=== PATIENT | male | born 1960 | race Caucasian/White ===

== ENCOUNTER 2019-08-10 13:42 | Outpatient (CLI) | payer BC, SELFPAY ==
--- NOTE | 2019-08-10 13:57 | CT_ITS ---
WS: [id number] CT CHEST TECHNIQUE: Contrast enhanced CT of the chest with coronal and sagittal reformatted images. CLINICAL INFORMATION: LEFT PULMONARY NODULE COMPARISON: None. DLP: 980.[address] scans at [facility] use at least one of these dose optimization techniques: automat ed exposure control; mA and/or kV adjustment per patient size (includes targeted exams where dose is matched to clinical indication); or iterative reconstruction. FINDINGS: Noncalcified pulmonary nodule left lower lobe measuring 6 mm. Chronic calcified granulomatous disease . Slight bibasilar atelectasis. No acute pulmonary infiltrates. No consolidation or pleural fluid. Vascular calcification including coronary. No mediastinal or hilar lymphadenopathy. Thyroid gland is normal. No axillary lymphadenopathy. A few slightly prominent lymph nodes at the corie hepatis likely reactive. Adrenal glands are normal. Normal GE junction. Mild thoracic kyphosis. Ankylosis thoracic spine. CT/CT chest w con* [id number] IMPRESSION: 1. Noncalcified pulmonary nodule left lung base measuring 6 mm. Recommend 6 mo nth follow-up. 2. No other suspicious pulmonary opacities. 3. Chronic granulomatous disease. 4. No mediastinal or hilar lymphadenopathy. 5. Vascular calcification including coronary.
[2019-08-10 14:22] LABS: Blood Urea Nitrogen 7 mg/dL (8-23)
[2019-08-10] MEDS: iohexol 300 mg/mL 100 mL Btl IV (14:27)
== END 2019-08-10 13:43 | disposition home or self-care (01) ==
PROVIDERS: Radiology Neuroradiology; PCP Nurse Practitioner Family; Visit Provider Nurse Practitioner Family
DX: I25.10 Atherosclerotic heart disease of native coronary artery without angina pectoris (principal); R91.1 Solitary pulmonary nodule
CPT/HCPCS: 71260; 82565; 84520; Q9967

== ENCOUNTER 2020-03-16 14:06 | Outpatient (CLI) | payer BC, SELFPAY ==
--- NOTE | 2020-03-16 14:25 | CT_ITS ---
WS: [id number] CT CHEST TECHNIQUE: Contrast enhanced CT of the chest with coronal and sagittal reformatted images. CLINICAL INFORMATION: LEFT PULMONARY NODULE COMPARISON: CT chest August 10, 2019 DLP: 1072.[address] scans at [facility] use at least one of these dose optimization techniques: automat ed exposure control; mA and/or kV adjustment per patient size (includes targeted exams where dose is matched to clinical indication); or iterative reconstruction. FINDINGS: Noncalcified pulmonary nodule left lower lobe measuring 6 mm unchanged from previous. 4 mm groundglas s nodule right lower lobe seen today is also stable. Chronic calcified granulomatous disease. No acut e pulmonary infiltrates. No consolidation or pleural fluid. Vascular calcification including coronary . No mediastinal or hilar lymphadenopathy. Partially visualized 1.5 cm Enhancing lesion in the dome the liver appears stable compared to previou s and represent cavernous hemangioma but incompletely evaluated. This could be further evaluated with ultrasound or CT abdomen pelvis with contrast. Thyroid gland is normal. No axillary lymphadenopathy. A few slightly prominent lymph nodes at the por ta hepatis likely reactive unchanged. Adrenal glands are normal. Normal GE junction. Mild thoracic ky phosis. Ankylosis thoracic spine. CT/CT chest w con* [id number] IMPRESSION: 1. Noncalcified pulmonary nodule left lung base measuring 6 mm is unchanged. A dditional groundglass 4 mm nodule right lower lobe is also stable. Recommend 12 month follow-up. 2. No acute pulmonary infiltrates. 3. 1.5 cm partially visualized enhancing lesion in the dome of the liver nonsp ecific but may represent cavernous hemangioma. This can be further evaluated wi ultrasound or contrast-enhanced CT abdomen pelvis. 4. No mediastinal or hilar lymphadenopathy. 5. Vascular calcification including coronary.
[2020-03-16 14:44] LABS: Blood Urea Nitrogen 8 mg/dL (8-23)
== END 2020-03-16 14:07 | disposition home or self-care (01) ==
LOC: RADWPI 14:10
PROVIDERS: PCP Nurse Practitioner Family; Visit Provider Nurse Practitioner Family
DX: R91.1 Solitary pulmonary nodule (principal); I25.10 Atherosclerotic heart disease of native coronary artery without angina pectoris; K76.9 Liver disease, unspecified
CPT/HCPCS: 71260; 82565; 84520; Q9967

== ENCOUNTER 2020-04-18 08:28 | Outpatient (CLI) | payer BC, SELFPAY ==
--- NOTE | 2020-04-18 | US_ITS ---
WS: [id number] Gallbladder and right upper quadrant ultrasound, 04/18/2020 Clinical Data: LIVER LESION Comparison: None. Findings: The gallbladder shows no sludge or stone. The wall measures 0.25 cm with no pericholecystic fluid. The common bile duct is 0.42 cm and there are no intrahepatic ductal abnormalities. The liver is enlarged, 21.5 cm, with dense fatty infiltration. Liver shows no cysts, masses or dilated intrahepatic ducts. The pancreas is not obscured by overlying bowel gas and no cyst, pseudocyst, or evidence of pancreati tis is noted. Right kidney measures 13.0 cm and no cyst, masses or hydronephrosis can be seen. The aorta and inferior vena cava show no vascular abnormalities. US/US liver [id number] Impression: 1. No definite liver lesion is seen. 2. Enlarged dense liver with fatty infiltration.
== END 2020-04-18 08:29 | disposition home or self-care (01) ==
LOC: RADOUTREAD 09:45
PROVIDERS: PCP Nurse Practitioner Family; Visit Provider Nurse Practitioner Family
DX: K76.9 Liver disease, unspecified (principal); K76.0 Fatty (change of) liver, not elsewhere classified
CPT/HCPCS: 76705

== ENCOUNTER 2023-05-26 16:15 | Emergency (ER) | payer BC, SELFPAY ==
[2023-05-26] VITALS (19 sets, daily range): BP systolic 150–160; BP diastolic 87–88; PULSE 81; RESP 18; TEMP 37.9; O2SAT 94–98; BMI 42.7
--- NOTE | 2023-05-26 16:30 | ED_ITS ---
HPI - Extremity Problem General: Chief complaint: Extremity Problem,Nontraumatic Stated complaint: swollen/fluid retention Time Seen by Provider: 05/26/23 16:24 History of Present Illness: 63-year-old male with history of alcohol abuse and recently diagnosed with cirrhosis and possible liver mass few weeks ago presents emergency room today with diffuse abdomen swelling and lower extremity swelling and scrotal swelling. Patient reveals a history of chronic alcohol abuse but stopped drinking about 2 months ago.. Few months ago patient had ultrasound that showed liver mass and scheduled for biopsy on the of this month.Patient also reveals that he scheduled to see his primary doctor tomorrow for paracentesis patient patient is currently taking Lasix as scheduled but reveals that he is having less urine output. Associated symptoms: Deny fever(s) Review of Systems General: Reports: 10 or more systems reviewed and unremarkable except in HPI and below Const: Reports: fatigue; Denies: fever(s), chills, body aches or change in sleep pattern Card: Reports: edema and swelling of feet/ankles GI: Denies: abdominal pain, nausea, vomiting, hematemesis, heartburn, early satiety, diarrhea, GI cramping, rectal swelling, rectal itching, hematochezia or white/light colored stool : Reports: scrotal swelling; Denies: testicular pain or testicular mass Musc: Denies: neck pain or extremity pain Neuro: Denies: headache(s), numbness in extremities, weakness in extremities, sensory changes, lack of coordination, difficulty walking, frequent falls, dizziness, vertigo or confusion PFS ED PFSH: Medical History HTN (hypertension) Smokeless tobacco use Family History (System 03/11/20 @ 14:22 by Elizabeth Aldrich) Father CAD (coronary artery disease) Hypertension Social History (System 03/11/20 @ 14:22 by Elizabeth Aldrich) Smoking and tobacco/nicotine status: never used tobacco/nicotine Physical Exam Const: COMMON NORMALS: no acute distress, average body habitus, patient oriented x3, no limitations, healthy appearing, alert and well nourished Neck/C-Spine: COMMON NORMALS: no JVD Lymph: LYMPHATIC: no lymphadenopathy noted Resp: COMMON NORMALS: normal respiratory effort, No retractions, No use of accessory muscles, clear to auscultation bilaterally and percussion normal AUSCULTATION: clear to auscultation bilaterally PERCUSSION: percussion normal Cardio: COMMON NORMALS: no JVD, regular rate, regular rhythm, S1 normal heart sound present, S2 normal heart sound present, No gallops present (Cardio), No clicks present (Cardio), No murmurs present (Cardio), No rub (Cardio) and Peripheral pulses 2+ throughout PALPATION: normal PMI RATE: regular rate RHYTHM: regular rhythm HEART SOUNDS: S1 normal heart sound present and S2 normal heart sound present PERIPHERAL PULSES: Peripheral pulses 2+ throughout GI: INSPECTION: No abdominal wall ecchymosis, Yes Abdominal wall edema, Yes Anasarca, Yes abdominal distension and Yes Fluid wave present AUSCULTATION: Yes Hypoactive bowel sounds present PALPATION: Yes Firmness to palpation present (GI), Yes Ascites present and No Rebound tenderness present PERCUSSI ON: Fluid wave present : SCROTUM: No Scrotal tenderness present, No erythematous, No ecchymosis, Yes edematous, Yes scrotal swelling, No Scrotal lesions present and No scrotal mass Extremity: NARRATIVE EXTREMITY EXAM: Lower extremity with 2+ pitting edema diffusely. No calf tenderness. Neuro: COMMON NORMALS: patient oriented x3 SENSORIUM/ORIENTATION: Yes alert Psych: COMMON NORMALS: mental status grossly normal, Normal thought process present, cooperative, normal affect, speech normal, activity/motor behavior no rmal, denies hallucinations, denies homicidal ideation and denies suicidal ideation SPEECH: Yes normal speech THOUGHT PROCESS: Normal thought process present Skin: COMMON NORMALS: no rashes or lesions noted, no wounds, turgor normal, no jaundice, no petechiae and no mottling GENERAL SKIN EXAM: no rashes or lesions noted and turgor normal Course Vital Signs: Vital signs: Vital Signs Temperature 100.3 F H 05/26/23 16:17 Pulse Rate 81 05/26/23 16:17 Respiratory Rate 18 05/26/23 16:17 Blood Pressure 150/88 05/26/23 18:35 Pulse Oximetry 96 05/26/23 17:25 Oxygen Delivery Me thod Room Air 05/26/23 16:17 MDM - Extremity (Nontraumatic) Medical Decision Making Patient was made comfortable emergency room patient extensive work-up including CBC, CMP, coags and was given IV Lasix. Patient was reassured after reviewing his lab with him. He was told to follow-up with his primary physician as sched uled for tomorrow for the procedure. Differential Diagnosis Likely gout, cellulitis, deep venous thrombosis of upper extremity, lower extremity edema (Ascites, cirrhosis) and deep vein thrombosis of lower extremity Lab Data 05/26/23 17:05 05/26/23 17:05 Laboratory Results WBC 7.02 10^3/uL (3.29-11.43) 05/26/23 17:05 RBC 3.73 10^6/uL (3.85-5.65) L 05/26/23 17:05 Hgb 12.70 g/dL (11.27-16.99) 05/26/23 17:05 Hct 36.9 % (37-53) L 05/26/23 17:05 MCV 98.9 fl (82-101) 05/26/23 17:05 MCH 34.0 pg (27-33) H 05/26/23 17:05 MCHC 34.4 g/dL (30-55) 05/26/23 17:05 RDW 13.8 % (12.1-15.1) 05/26/23 17:05 Plt Count 162 10^3/cmm (157-399) 05/26/23 17:05 MPV 10.0 fL (7.4-10.4) 05/26/23 17:05 Neut % (Auto) 51.7 % 05/26/23 17:05 Lymph % (Auto) 30.6 % 05/26/23 17:05 [place] % (Auto) 13.4 % 05/26/23 17:05 Eos % (Auto) 3.1 % 05/26/23 17:05 Baso % (Auto) 1.1 % 05/26/23 17:05 Neut # (Auto) 3.62 10^3/uL (1.8-7.7) 05/26/23 17:05 Lymph # (Auto) 2.2 10^3/uL (0.8-4.8) 05/26/23 17:05 [place] # (Auto) 0.9 10^3/uL (0.2-0.9) 05/26/23 17:05 Eos # (Auto) 0.2 10^3/uL (0.0-0.8) 05/26/23 17:05 Baso # (Auto) 0.1 10^3/uL (0.0-0.1) 05/26/23 17:05 Nucleated RBC % (auto) 0 % 05/26/23 17:05 Nucleated RBCs # 0.0 /100WBC 05/26/23 17:05 PT 17.40 SECONDS (12.1-14.9) H 05/26/23 17:05 INR 1.37 (0.8-1.2) H 05/26/23 17:05 APTT 35.7 SECONDS (23.9-36.7) 05/26/23 17:05 Sodium 133 mmol/L (136-145) L 05/26/23 17:05 Potassium 3.6 mmol/L (3.5-5.1) 05/26/23 17:05 Chloride 94 mmol/L (98-107) L 05/26/23 17:05 Carbon Dioxide 34 mmol/L (22-29) H 05/26/23 17:05 Anion Gap 8.6 (5-19) 05/26/23 17:05 BUN 9 mg/dL (8-23) 05/26/23 17:05 Creatinine 0.9 mg/dL (0.7-1.2) 05/26/23 17:05 GFR Calculation 85.0 mL/min (90-130) L 05/26/23 17:05 Glucose 104 mg/dL (65-115) 05/26/23 17:05 Calculated Osmolality 275 mOsm/kg (285-295) L 05/26/23 17:05 Calcium 8.7 mg/dL (8.5-10.5) 05/26/23 17:05 Total Bilirubin 1.8 mg/dL (0.15-1.2) H 05/26/23 17:05 AST 35 U/L (0-40) 05/26/23 17:05 ALT 13 U/L (0-41) 05/26/23 17:05 Alkaline Phosphatase 61 U/L (40-130) 05/26/23 17:05 NT-Pro-B Natriuret Pep 298 pg/mL (0-125) H 05/26/23 17:05 Total Protein 7.2 g/dL (6.6-8.7) 05/26/23 17:05 Albumin 2.9 g/dL (3.5-5.2) L 05/26/23 17:05 Globulin 4.3 g/dL (1.3-4.6) 05/26/23 17:05 No radiology studies performed this visit Discharge Plan Discharge Patient Disposition: Home Clinical Impression: Anasarca, Cirrhosis Condition: Stable Prescriptions: No Action simvastatin 40 mg tablet 40 mg PO DAILY 90 Days Qty: 90 3RF lisinopril 40 mg tablet 40 mg PO DAILY 90 Days Qty: 90 3RF amlodipine 10 mg tablet 10 mg PO DAILY 90 Days Qty: 90 3RF Discharge Orders: Discharge ED (Routine); Ordered 05/26/23 Ordered By: Karen Kelly Referrals: Bobbi Rivas FNP [Primary Care Provider] - Discharge Diet: Advance as tolerated Discharge Activity: Resume usual activity Patient Instructions: Opioid Safety, Pain Management Coding Level of Care Code ED Security Systems Administrator for Abdoulaye Virk
[2023-05-26] MEDS: FUROsemide 10 mg/mL SDV 10mL 60 MG IVP (17:05)
[2023-05-26 17:21] LABS: Basophils # 0.1 10^3/uL (0.0-0.1); Basophils % 1.1 %; Eosinophils # 0.2 10^3/uL (0.0-0.8); Eosinophils % 3.1 %; Hematocrit 36.9 % (37-53); Lymphocytes # 2.2 10^3/uL (0.8-4.8); Lymphocytes % 30.6 %; Mean Corpuscular HGB Conc 34.4 g/dL (30-55); Mean Corpuscular Volume 98.9 fl (82-101); Monocytes # 0.9 10^3/uL (0.2-0.9); Monocytes % 13.4 %; Neutrophils # 3.62 10^3/uL (1.8-7.7); Neutrophils % 51.7 %; Nucleated Red Blood Cells % 0 %; Platelet Count 162 10^3/cmm (157-399); Red Blood Count 3.73 10^6/uL (3.85-5.65); Red Cell Distribution Width 13.8 % (12.1-15.1); White Blood Count 7.02 10^3/uL (3.29-11.43)
[2023-05-26 17:30] LABS: INR 1.37 (0.8-1.2)
[2023-05-26 17:31] LABS: Partial Thromboplastin Time 35.7 SECONDS (23.9-36.7)
[2023-05-26 17:44] LABS: Alanine Aminotransferase 13 U/L (0-41); Albumin Level 2.9 g/dL (3.5-5.2); Alkaline Phosphatase 61 U/L (40-130); Anion Gap 8.6 (5-19); Aspartate Amino Transferase 35 U/L (0-40); Blood Urea Nitrogen 9 mg/dL (8-23); Calcium 8.7 mg/dL (8.5-10.5); Carbon Dioxide 34 mmol/L (22-29); Chloride 94 mmol/L (98-107); Globulin 4.3 g/dL (1.3-4.6); Glucose 104 mg/dL (65-115); Osmolality Calculated 275 mOsm/kg (285-295); Potassium 3.6 mmol/L (3.5-5.1); Sodium 133 mmol/L (136-145); Total Bilirubin 1.8 mg/dL (0.15-1.2); Total Protein 7.2 g/dL (6.6-8.7)
[2023-05-26 17:50] LABS: NT Pro B Type Natriuretic Pept 298 pg/mL (0-125)
== END 2023-05-26 18:45 | disposition home or self-care (01) ==
PROVIDERS: Emergency Provider Family Medicine; PCP Nurse Practitioner Family
DX: R60.1 Generalized edema (principal); K74.60 Unspecified cirrhosis of liver; I10 Essential (primary) hypertension
CPT/HCPCS: 80053; 83880; 85025; 85610; 85730; 96374; 99284; J1940

== ENCOUNTER 2023-10-29 10:34 | Day surgery (SDC) | payer BC, SELFPAY ==
[2023-10-29] VITALS (11 sets, daily range): BP systolic 114–125; BP diastolic 58–77; PULSE 80–93; RESP 16–18; TEMP 36.3–36.9; O2SAT 95–99; BMI 33.7
--- NOTE | 2023-10-29 11:27 | W.PM.OPSUD ---
Surgery/Procedure H&P Update DATE OF PROCEDURE: October 29, 2023 DATE H&P PERFORMED: 10/25/23 H&P UPDATE INFORMATION: I have reviewed H&P completed within last 30 days, I have examined patient prior to procedure and No changes to prior documentation PLANNED PROCEDURE: Operation Date: 10/29/23 12:25 Proposed Procedures p Laparoscopic Peritoneal Cath Inserti(Not Applicable) - Cheng Moss DO
--- NOTE | 2023-10-29 11:45 | P.ANESASSM_ITS ---
Pre-Anesthetic Assessment Height/Weight: Height 1.68 m Weight 94.801 kg Operation Date: 10/29/23 12:25 Proposed Procedures p Laparoscopic Peritoneal Cath Inserti(Not Applicable) - Cheng Moss DO Last intake: Intake Last Liquid Date 10/28/23 Last Liquid Time 20:00 Last Solid Date 10/28/23 Last Solid Time 20:00 Social No alcohol quit etoh 03/06 Exam alert, oriented x 3, clear to auscultation bilaterally and regular rate & rhythm Airway Submandibular: within normal limits Cervical ROM: within normal limits Mallampati: Class I CV/HEM Murmur Hepatic Cirrhosis GI None reported Anesthetic Plan ASA status: 3 Anesthesia: General Risk of > 500 ml blood loss (7ml/kg in children): No Medications/Allergies Home Medications Medication Instructions Recorded Confirmed Last Taken Type amlodipine 10 mg tablet 10 mg PO DAILY 90 days #90 tabs 09/22/19 10/29/23 Unknown Rx lisinopril 40 mg tablet 40 mg PO DAILY 90 days #90 tabs 09/22/19 10/29/23 Unknown Rx simvastatin 40 mg tablet 40 mg PO DAILY 90 days #90 tabs 09/22/19 10/29/23 Unknown Rx ondansetron HCl 4 mg tablet 4 mg PO Q6H PRN Nausea And Vomiting 10/25/23 10/28/23 Unknown History carvedilol 6.25 mg tablet 6.25 mg PO DAILY 10/28/23 10/29/23 Unknown History fentanyl 25 mcg/hr transdermal 25 mcg transdermal Q72H 10/28/23 10/28/23 10/27/23 History patch furosemide 80 mg tablet 80 mg PO DAILY 10/28/23 10/28/23 10/28/23 History lactulose 10 gram/15 mL oral 10 g PO 2XD 10/29/23 10/29/23 10/28/23 History solution pantoprazole 40 mg tablet,delayed 40 mg PO 1XD 10/29/23 10/29/23 10/28/23 History release Allergies Allergy/AdvReac Type Severity Reaction Status Date / Time No Known Allergies Allergy Unverified 10/25/23 12:19 [facility] Anesthesia Medical History (Updated 10/29/23 @ 07:08 by Cheng Moss DO) Cirrhosis Smokeless tobacco use HTN (hypertension) Family History Father CAD (coronary artery disease) Hypertension Social History Smoking and tobacco/nicotine status: never used tobacco/nicotine Data Anesthesia Cardiac Studies: No Data to Display
[2023-10-29] MEDS: sodium chloride 0.9% 1,000 ML 30 ML IV (12:10)
[2023-10-29] MEDS: ceFAZolin 2,000 MG in sodium chloride 0.9% (plus) 50 ML 100 MG IV (12:35)
[2023-10-29] MEDS: lidocaine-epi 2% PF 1:200,000 20 mL SDV XX (12:51)
--- NOTE | 2023-10-29 13:16 | P.OP_ITS ---
Operative Report Date of procedure: October 29, 2023 Pre-op diagnosis: Cirrhosis with ascites Post-op diagnosis: same Procedure done: Laparoscopic peritoneal drain placement Implants: Peritoneal drainage catheter Specimens removed/disposition: None Surgeon: Cheng Moss DO Anesthesia: General and Local Estimated blood loss (mL): 5 Complications: None apparent Findings: 2 L of ascitic fluid drained and 25 g albumin given Brief History: This very pleasant 63-year-old gentleman with liver failure and ascites who gets frequent paracenteses. He desires peritoneal drainage catheter for more frequent drainage. The risk and benefits were explained and documented. Procedure: Patient was wheeled in the operative room and placed on the OR table in supine position. The abdomen was inspected prepped and draped in usual sterile fashion. A timeout was performed all present were in agreement. A Veress needle was placed in the left upper quadrant and intra-abdominal insufflation was brought to 15 mmHg. A 5 mm trocar was then placed into the site using Optiview. A second 5 mm trocar was placed in the left lower quadrant. An 8 mm trocar was then placed just left of the umbilicus and tunneled subcutaneously an d then preperitoneal he down to the pelvis. This was done under direct visualization. A peritoneal dialysis catheter was then fed through this trocar down into the pelvis. Both cuffs were noted to be subcutaneously and preperitoneum only. 2000 cc of thin yellow peritoneal fluid was suctioned through the catheter. The catheter appeared in good working order. 25 g of albumin was given IV to the patient. Ports were removed. A 2-0 Ethilon suture was used to suture the catheter in place. Skin was closed using 4-0 Monocryl in a subcutaneous fashion. Dermabond was applied. Patient tolerated the procedure well.
--- NOTE | 2023-10-29 15:08 | ANE.PACU2 ---
Inpatient post-anesthesia follow up: Vital signs: Temperature 97.8 F Pulse Rate 86 Respiratory Rate 18 Blood Pressure 123/77 Pulse Oximetry 97 Oxygen Delivery Me thod Room Air Oxygen Flow Rate Fraction of Inspir ed Oxygen Hydration adequate: Yes Nausea and vomiting: No Pain level: Other (controlled) Mental status: Baseline Additional Comments: no apparent anesthetic complications noted
== END 2023-10-29 14:55 | disposition home or self-care (01) ==
PROVIDERS: PCP Nurse Practitioner Family; Visit Provider Surgery
PROC: 0WHG43Z Insertion of Infusion Device into Peritoneal Cavity, Percutaneous Endoscopic Approach (ICD-10-PCS; CPT 49324; principal; 2023-10-29 12:15)
DX: K70.31 Alcoholic cirrhosis of liver with ascites (principal); I10 Essential (primary) hypertension
CPT/HCPCS: 49324; J0690; J1100; J2405; J2704; J3010; J3490; J7030; P9045